=== PATIENT | female | born 1940 | race American Indian/Alaskan Native ===

== ENCOUNTER 2017-03-05 13:46 | Emergency (ER) | payer MEDICARE ==
[2017-03-05 14:19] VITALS: BP 135/89
--- NOTE | 2017-03-05 14:35 | EDM.PDOC ---
[id number] 4Bd Pain Score (Numeric/FACES): 5 - Related Data Allergies Allergy/AdvReac Type Severity Reaction Status Date / Time No Known Allergies Allergy Verified 03/05/17 14:07 Home Meds: Home Meds Polyethylene Glycol 3350 [MiraLAX] 17 gm PO DAILY PRN 01/11/15 [History] Past Medical History - Past Health History Medical/Surgical History: Denies Medical/Surgical History Musculoskeletal History: Reports: Back pain, chronic, Other (see below) Other Musculoskeletal History: spinal stenosis, bulging disc - Infectious Disease History Infectious Disease History: Reports: Chicken pox, Measles Social & Family History - Tobacco Use Smoking Status *Q: Never Smoker Years of Tobacco use: 6 Second Hand Smoke Exposure: No - Caffeine Use Caffeine Use: Reports: Coffee - Alcohol Use Days Per Week of Alcohol Use: 1 Number of Drinks Per Day: 3 Total Drinks Per Week: 3 - Recreational Drug Use Recreational Drug Use: No ED ROS GENERAL - Review of Systems Review Of Systems: See Below Constitutional: Denies: fever, chills HEENT: Reports: No symptoms. Denies: Vision change Respiratory: Denies: Shortness of Breath, Cough Cardiovascular: Denies: Chest pain GI/Abdominal: Denies: Abdominal pain Skin: Reports: no symptoms Neurological: Reports: Paresthesia (See HPI) Psychiatric: Reports: No symptoms ED EXAM, NEURO - Physical Exam Exam: See Below Exam Limited By: No limitations General Appearance: alert, no apparent distress Eye Exam: bilateral eye: EOMI, PERRL Neck: normal inspection Respiratory/Chest: no respiratory distress, lungs clear Cardiovascular: regular rate, rhythm GI/Abdominal: No: Soft, Non-Tender Neurological: alert, normal mood/affect, no motor/sensory deficits, other ( Negative Romberg, no pronator drift) Psychiatric: normal affect, normal mood Skin Exam: Warm, Dry Course - Vital Signs Last Recorded V/S: Last Vital Signs Temp 95.2 F L 03/05/17 14:09 Pulse 77 03/05/17 14:09 Resp 14 03/05/17 14:09 BP 135/89 03/05/17 14:09 Pulse Ox 96 03/05/17 14:09 - Re-Assessments/Exams Free Text/Narrative Re-Assessment/Exam: 03/05/17 15:05 Because of the persistence of symptoms over the course of the past [address] of the head was obtained and was normal. Encouraged the patient to take a full aspirin daily and recheck with her primary care provider in the next 1 to 2 weeks. She should return at any time if worsening and an MRI may be necessary. Symptoms may resolve. Departure - Departure Time of Disposition: 15:39 Disposition: Home, Self-Care 01 Clinical Impression: Facial paresthesia, Paresthesia of right upper and lower extremity - Discharge Information Instructions: Paresthesia, [id number] Referrals: Rio Hampton MD [Primary Care Provider] - Forms: ED Department Discharge Care Plan Goals: Take one full dose 325 mg aspirin daily for the next 7-10 days, if symptoms resolve reduce to a low-dose aspirin daily. Consider rechecking with Dr. Hampton in the next 7-14 days to monitor progress or return anytime sooner if worsening or concerns. ED HPI NEURO - General Chief Complaint: Neuro Symptoms/Deficits Stated Complaint: NUMBNESS ON RIGHT SIDE FACE,ARM Time Seen by Provider: 03/05/17 14:25 Source: Reports: Patient History Limitations: Reports: No limitations - History of Present Illness INITIAL COMMENTS - FREE TEXT/NARRATIVE: 76-year-old female who is otherwise healthy has developed right-sided numbness and paresthesias over the last 2 weeks. She has no headache, visual disturbance , weakness, fever or chills or shortness of breath or palpitations. The numbness tends to be in her face but at times it worsens into the right arm and right leg. It's been ongoing for the past 2 weeks. She has no migraine history or stroke history, no hypertension he takes no medications. She does have a chronic low back pain and spinal stenosis. Timing/Duration: Reports: Week(s): (2 weeks) Quality (Neuro Complaint): Reports: numbness Severity: mild Associated symptoms: Reports: denies other symptoms - Related Data Allergies/ADRs: Allergies Allergy/AdvReac Type Severity Reaction Status Date / Time No Known Allergies Allergy Verified 03/05/17 14:07 Home Meds: Home Meds Polyethylene Glycol 3350 [MiraLAX] 17 gm PO DAILY PRN 01/11/15 [History] Departure - Departure Time of Disposition: 15:39 Disposition: Home, Self-Care 01 Condition: good Clinical Impression: Facial paresthesia, Paresthesia of right upper and lower extremity Instructions: Paresthesia, [id number] Referrals: Rio Hampton MD [Primary Care Provider] - Forms: ED Department Discharge Care Plan Goals: Take one full dose 325 mg aspirin daily for the next 7-10 days, if symptoms resolve reduce to a low-dose aspirin daily. Consider rechecking with Dr. Hampton in the next 7-14 days to monitor progress or return anytime sooner if worsening or concerns.
--- NOTE | 2017-03-05 14:57 | CT ---
Head wo Cont HISTORY: Right paresthesias. COMPARISON: None TECHNIQUE: Noncontrast enhanced axial cuts were obtained of the brain. Total DLP: 685. FINDINGS:There is no cerebral or subdural hemorrhage. There is no mass effect or edema. The ventricl es and CSF spaces are appropriate for age. No space occupying lesions are demonstrated. The orbital structures are unremarkable. The sinuses demonstrate normal aeration. IMPRESSION: Negative exam.
== END 2017-03-05 15:39 | disposition home or self-care (01) ==
LOC: JP.ED 13:46
DX: R20.2 Paresthesia of skin (principal); Z79.899 Other long term (current) drug therapy
CPT/HCPCS: 70450; 70450-26; 99282; 99284-25

== ENCOUNTER 2018-06-12 23:22 | Emergency (ER) | payer MEDICARE ==
[2018-06-13 00:02] VITALS: BP 147/100
[2018-06-13] MEDS ORDERED: LORazepam 1 MG Tab PO ONE (00:14)
[2018-06-13] MEDS ORDERED: Ondansetron 4 MG Tab.DIS PO ONE (00:14)
--- NOTE | 2018-06-13 00:20 | EDM.PDOC ---
ED HPI GENERAL MEDICAL PROBLEM - General Chief Complaint: Allergic Reaction Stated Complaint: REACTION TO MEDS Time Seen by Provider: 06/13/18 00:05 Source of Information: Reports: Patient, RN History Limitations: Reports: No Limitations - History of Present Illness INITIAL COMMENTS - FREE TEXT/NARRATIVE: 77 yo female with chronic low back pain was given some CBD(hemp) oil from a friend that was supposed to help with her back pain. She took it about 7 pm tonight and since then has had nausea, restlessness, poor concentration, and is worried she won't be able to sleep. Some throat burning. Feels a little off balance. 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 (see below) Other Treatments [employer] CAR[employer] SUPERVISOR: Vinegar - Related Data Allergies Allergy/AdvReac Type Severity Reaction Status Date / Time No Known Allergies Allergy Verified 06/12/18 23:39 Home Meds: Home Meds Polyethylene Glycol 3350 [MiraLAX] 17 gm PO DAILY PRN 01/11/15 [History] Past Medical History - Past Health History Medical/Surgical History: Denies 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/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: Musculoskeletal History: Reports: Back Pain, Chronic, Other (See Below) Other Musculoskeletal History: spinal stenosis, bulging disc - Infectious Disease History Infectious Disease History: Reports: Chicken Pox, Measles Social & Family History - Tobacco Use Smoking Status *Q: Never Smoker - Caffeine Use Caffeine Use: Reports: Coffee, Tea - Alcohol Use Days Per Week of Alcohol Use: 2 Number of Drinks Per Day: 1 Total Drinks Per Week: 2 - Recreational Drug Use Recreational Drug Use: No ED ROS ALLERGIC REACTION - Review of Systems Review Of Systems: See Below Constitutional: Reports: Malaise HEENT: Reports: No Symptoms Respiratory: Reports: No Symptoms Cardiovascular: Reports: No Symptoms GI/Abdominal: Reports: Nausea. Denies: Vomiting : Reports: No Symptoms Musculoskeletal: Reports: Back Pain (chronic) Skin: Reports: No Symptoms Neurological: Reports: Dizziness Psychiatric: Reports: Anxiety ED EXAM GENERAL NO PERIP PULSE - Physical Exam Exam: See Below Exam Limited By: No Limitations General Appearance: Alert, WD/WN, No Apparent Distress Eye Exam: Bilateral Eye: Normal Inspection Ears: Normal External Exam, Normal Canal, Hearing Grossly Normal Nose: Normal Inspection, Normal Mucosa, No Blood Throat/Mouth: Normal Lips, Normal Oropharynx, Normal Voice, No Airway Compromise Head: Atraumatic, Normocephalic Neck: Normal Inspection Respiratory/Chest: No Respiratory Distress, Lungs Clear, Normal Breath Sounds, No Accessory Muscle Use Cardiovascular: Regular Rate, Rhythm, No Edema Extremities: Normal Inspection Neurological: Alert, Oriented, CN II-XII Intact, Normal Cognition, No Motor/ Sensory Deficits Psychiatric: Normal Affect, Normal Mood Skin Exam: Warm, Dry, Intact, Normal Color, No Rash Course - Vital Signs Last Recorded V/S: Last Vital Signs Temp 35 C L 06/12/18 23:44 Pulse 92 06/12/18 23:44 Resp 18 06/12/18 23:44 BP 147/100 H 06/13/18 00:01 Pulse Ox 96 06/12/18 23:44 - Orders/Labs/Meds Meds: Medications Discontinued Medications Generic Name Dose Route Start Last Admin Trade Name Freq PRN Reason Stop Dose Admin Lorazepam 1 mg 06/13/18 00:14 06/13/18 00:19 Ativan PO 06/13/18 00:15 Not Given ONETIME ONE Ondansetron HCl 4 mg 06/13/18 00:14 06/13/18 00:19 Zofran Odt PO 06/13/18 00:15 4 mg ONETIME ONE Administration Departure - Departure Time of Disposition: 00:42 Disposition: Home, Self-Care 01 Condition: Good Clinical Impression: Medication side effect - Discharge Information *PRESCRIPTION DRUG MONITORING PROGRAM REVIEWED*: Not Applicable *COPY OF PRESCRIPTION DRUG MONITORING REPORT IN PATIENT [place]ERARD[place]: Not Applicable Referrals: PCP,None [Primary Care Provider] - Forms: ED Department Discharge Additional Instructions: Avoid this product that does not agree with your. Recheck with your provider as needed.
== END 2018-06-13 00:47 | disposition home or self-care (01) ==
LOC: JP.ED 23:22
DX: R11.0 Nausea (principal); T50.995A Adverse effect of other drugs, medicaments and biological substances, initial encounter; Z79.899 Other long term (current) drug therapy
CPT/HCPCS: 99283; A9270

== ENCOUNTER 2021-10-04 06:31 | Day surgery (SDC) | payer MEDICARE ==
[2021-10-04] MEDS ORDERED: Sodium Chloride 0.9% 1,000 ML IV SCH (07:00)
[2021-10-04] MEDS ORDERED: fentaNYL 100 MCG/2 ML SDV ONE (07:05)
[2021-10-04] MEDS ORDERED: Propofol 200 MG/20 ML SDV ONE (07:05)
[2021-10-04] MEDS ORDERED: Midazolam 1 MG/ML 2 ML SDV ONE (07:05)
[2021-10-04 10:20] VITALS: BP 120/69; PULSE 62
--- NOTE | 2021-10-04 10:51 | OR ---
DATE OF PROCEDURE: 10/04/2021 SURGEON: Jey Hunt MD PROCEDURE: Colonoscopy. FINDINGS: Diverticulosis, mild, limited to sigmoid colon. COMPLICATION: None. DEICER ELEMENT WINDER MACHINE: None. ANESTHESIA: MAC. PREOPERATIVE DIAGNOSIS: Screening colonoscopy. POSTOPERATIVE DIAGNOSIS: Screening colonoscopy. RISKS: Risks, benefits, alternatives, and limitations including, but not limited to infection, bleeding, perforation, false positives and false negatives were explained to the patient, who wished to proceed. PROCEDURE IN DETAIL: The patient was placed in left lateral decubitus position. A digital rectal exam was performed without abnormality. The scope was introduced and advanced atraumatically to the ileocecal valve. The scope was brought back to the ascending, transverse, descending colon and retroflexed. No evidence of old or new blood. No masses. No polyps. Diverticulosis described as mild, limited to sigmoid colon without evidence of diverticulitis or bleeding. Greater than 8 minutes was spent removing the scope. The prep was acceptable, approximately 90% of the luminal surface could be seen. The patient tolerated procedure well. Jey Hunt MD /[id number]
== END 2021-10-04 10:32 | disposition home or self-care (01) ==
LOC: JP.SDS 06:31
PROVIDERS: ATTEND Surgery
DX: Z12.11 Encounter for screening for malignant neoplasm of colon (principal); K57.30 Diverticulosis of large intestine without perforation or abscess without bleeding; E78.5 Hyperlipidemia, unspecified; Z86.73 Personal history of transient ischemic attack (TIA), and cerebral infarction without residual deficits
CPT/HCPCS: G0121; J2250; J2704; J3010; J7030

== ENCOUNTER 2022-10-29 09:23 | Emergency (ER) | payer MEDICARE ==
[2022-10-29] MEDS ORDERED: Sodium Chloride 0.9% 10 ML Syringe FLUSH PRN (09:32)
[2022-10-29 09:46] VITALS: PULSE 88
[2022-10-29] MEDS ORDERED: niCARdipine HCl 25 MG in Sodium Chloride 0.9% 240 ML IV SCH (10:00)
[2022-10-29 10:12] LABS: ESTIMATED GFR 74 mL/min (>60); TROPONIN I HIGH SENSITIVITY 5.8 pg/mL (<=60.3)
[2022-10-29] MEDS ORDERED: amLODIPine 5 MG Tab PO ONE (10:21)
[2022-10-29 11:34] VITALS: BP 169/114
== END 2022-10-29 11:43 | disposition home or self-care (01) ==
LOC: JP.ED 09:23
DX: R51.9 Headache, unspecified (principal); I10 Essential (primary) hypertension; Z79.899 Other long term (current) drug therapy; Z79.82 Long term (current) use of aspirin; Z86.73 Personal history of transient ischemic attack (TIA), and cerebral infarction without residual deficits
CPT/HCPCS: 36415; 70450; 80053; 82947; 84484; 85025; 85610; 85730; 93005; 99284; A9270; J3490